=== PATIENT | male | born 1980 ===

== ENCOUNTER 2017-10-22 18:32 | Emergency (ER) | payer OTHER ==
[2017-10-22 18:32] VITALS: BMI 35.6
[2017-10-22 18:35] VITALS: BP 137/89; PULSE 74; RESP 18; TEMP 97.8; O2SAT 98
--- NOTE | 2017-10-22 19:26 | ED PDOC ---
Upper Extremity Pain/Injury Time Seen by Provider: 10/22/17 18:36 Chief Complaint (Nursing): Upper Extremity Problem/Injury Chief Complaint (Provider): Upper Extremity Problem/Injury History Per: Patient History/Exam Limitations: no limitations Onset/Duration Of Symptoms: Hrs (x 3) Current Symptoms Are (Timing): Still Present Additional Complaint(s): Lee is a 37 year old male who presents to the Emergency Department for left, middle finger pain. Patient states at 17:00 today [facility] Patient states he had a DIP fusion surgery done on his left middle finger. Reports he had multiple surgeries done due to fractures. States around 17:30, he took Oxycodone (prescribed) with no relief; prompting ED visit. Denies numbness, tingling, and fever. Orthopedic Surgeon: Dr. Patrick Davis Past Medical History Reviewed: Historical Data, Nursing Documentation, Vital Signs Vital Signs: Last Vital Signs Temp 97.8 F 10/22/17 18:33 Pulse 74 10/22/17 18:33 Resp 18 10/22/17 18:33 BP 137/89 10/22/17 18:33 Pulse Ox 98 10/22/17 18:33 - Surgical History Other surgeries: DIP Fusion Surgery- Left middle finger - Family History Family History: States: Unknown Family Hx - Immunization History Hx Tetanus Toxoid Vaccination: No Hx Influenza Vaccination: No Hx Pneumococcal Vaccination: No - Home Medications Home Medications: Ambulatory Orders Medication Instructions Recorded Ibuprofen [Motrin] 600 mg PO Q6 PRN #20 tab 05/06/15 Oxycodone HCl/Acetaminophen 1 tab PO Q6 #15 tab 05/06/15 [Percocet 325 mg-5 mg] Ondansetron ODT [Zofran ODT] 4 mg PO TID #20 odt 10/22/17 - Allergies Allergies/Adverse Reactions: Allergies Allergy/AdvReac Type Severity Reaction Status Date / Time No Known Allergies Allergy Verified 05/24/14 01:34 Review of Systems ROS Statement: Except As Marked, All Systems Reviewed And Found Negative Constitutional: Negative for: Fever Musculoskeletal: Positive for: Other (Left Middle Finger Pain) Neurological: Negative for: Numbness, Other (Tingling) Physical Exam - Reviewed Nursing Documentation Reviewed: Yes Vital Signs Reviewed: Yes - Physical Exam Appears: Positive for: Non-toxic Head Exam: Positive for: ATRAUMATIC, NORMAL INSPECTION, NORMOCEPHALIC Extremity: Positive for: Other (Left arm Ortho-Glass splint: clean, no discharge , and no bleeding.) Neurologic/Psych: Positive for: Alert, Oriented - ECG O2 Sat by Pulse Oximetry: 98 (RA) Pulse Ox Interpretation: Normal Medical Decision Making Medical Decision Making: Time: 18:49 Plan: - Morphine 4 mg IM STAT - Zofran Inj 4 mg IM STAT Time: 19:00 - Case discussed with Dr. Patrick Davis ([phone]) and advised not to remove splint since drain is in place. Special dress must be kept intact. States patient has an appointment next Sunday and can follow up then. Scribe Attestation: Documented by Az Deluca, acting as a scribe for Denys Valdez PA-C Provider Scribe Attestation: All medical record entries made by the Scribe were at my direction and personally dictated by me. I have reviewed the chart and agree that the record accurately reflects my personal performance of the history, physical exam, medical decision making, and the department course for this patient. I have also personally directed, reviewed, and agree with the discharge instructions and disposition. Disposition - Clinical Impression Clinical Impression: Finger pain - Patient ED Disposition Is Patient to be Admitted: No - Disposition Disposition: Routine/Home Disposition Time: 20:44 Condition: STABLE Additional Instructions: Follow up with Dr. Davis without fail. Prescriptions: Ondansetron ODT [Zofran ODT] 4 mg PO TID #20 odt Instructions: Splint Care (ED) Forms: [employer] (Indonesian) Print Language: NORTH KOREAN
== END 2017-10-22 21:00 | disposition home or self-care (01) ==
LOC: H.ER 18:32
DX: G89.18 Other acute postprocedural pain (principal)
CPT/HCPCS: 96372; 99282; J2270; J2405

== ENCOUNTER 2018-02-01 18:37 | Emergency (ER) | payer OTHER ==
[2018-02-01 18:37] VITALS: BMI 35.6
[2018-02-01 19:33] VITALS: BP 117/74; PULSE 109; RESP 16; TEMP 99.8; O2SAT 98
--- NOTE | 2018-02-01 20:58 | ED PDOC ---
HPI: CCC, URI, Sore Throat Time Seen by Provider: 02/01/18 19:36 Chief Complaint (Nursing): ENT Problem Chief Complaint (Provider): ENT Problem History Per: Patient History/Exam Limitations: no limitations Onset/Duration Of Symptoms: Days (x 3) Current Symptoms Are (Timing): Still Present Additional Complaint(s): 37 year old female presents to the ED complaining of fever and sore throat, onset 3 days ago. Otherwise: (-) cough, (-) rash. PMD: none provided Past Medical History Reviewed: Historical Data, Nursing Documentation, Vital Signs Vital Signs: Last Vital Signs Temp 99.8 F H 02/01/18 19:28 Pulse 109 H 02/01/18 19:28 Resp 16 02/01/18 19:28 BP 117/74 02/01/18 19:28 Pulse Ox 98 02/01/18 21:06 - Medical History PMH: No Chronic Diseases - Surgical History Other surgeries: left wrist surgery - Family History Family History: States: Unknown Family Hx - Social History Current smoker - smoking cessation education provided: Yes (Current Some Days Smoker) - Immunization History Hx Tetanus Toxoid Vaccination: No Hx Influenza Vaccination: No Hx Pneumococcal Vaccination: No - Home Medications Home Medications: Ambulatory Orders Medication Instructions Recorded Ibuprofen [Motrin] 600 mg PO Q6 PRN #20 tab 05/06/15 Oxycodone HCl/Acetaminophen 1 tab PO Q6 #15 tab 05/06/15 [Percocet 325 mg-5 mg] Ondansetron ODT [Zofran ODT] 4 mg PO TID #20 odt 10/22/17 Ibuprofen [Motrin Tab] 600 mg PO QID PRN #20 tab 02/01/18 Penicillin VK [Penicillin VK Tab] 250 mg PO Q6H #40 tab 02/01/18 - Allergies Allergies/Adverse Reactions: Allergies Allergy/AdvReac Type Severity Reaction Status Date / Time No Known Allergies Allergy Verified 05/24/14 01:34 Review of Systems ROS Statement: Except As Marked, All Systems Reviewed And Found Negative Constitutional: Positive for: Fever ENT: Positive for: Throat Pain Respiratory: Negative for: Cough Skin: Negative for: Rash Physical Exam - Reviewed Nursing Documentation Reviewed: Yes Vital Signs Reviewed: Yes - Physical Exam Comments: GENERAL APPEARANCE: Patient is awake, alert, oriented x 3, in no acute distress , speaking in full sentences. SKIN: Warm, dry; (-) cyanosis, (-) rash. (-) Decubitus Ulcer EYES: (-) conjunctival pallor, (-) scleral icterus, (-) conjunctival hemorrhage. ENMT: Mucous membranes moist. TMs: (-) erythema. Tonsils: (+) erythema, (+) exudate. NECK: (-) tenderness, (-) stiffness, (-) meningismus, (-) lymphadenopathy. CHEST AND RESPIRATORY: (-) accessory muscle use. Lungs: (-) rales, (-) rhonchi, (-) wheezes, (-) rub; breath sounds equal bilaterally. HEART AND CARDIOVASCULAR: (-) irregularity; (-) murmur, (-) gallop, (-) rub. ABDOMEN AND GI: Soft; (-) tenderness, (-) guarding; (-) organomegaly; (-) mass ; (-) CVA tenderness. EXTREMITIES: (-) deformity; (-) cellulitis, (-) lymphangitis; (-) subungual hemorrhage; (-) edema. NEURO AND PSYCH: Mental status as above; (-) focal findings. - ECG O2 Sat by Pulse Oximetry: 98 (RA) Pulse Ox Interpretation: Normal Medical Decision Making Medical Decision Making: Time: 20:04 Impression: pharyngitis Patient will be discharged with Motrin due to fever. Advised to follow up with primary care physician or the clinic in 1-2 days without fail. Advised to take medication as prescribed. Return to the emergency room at any time for any new or worsening symptoms. Patient states he fully agrees with and understands discharge instructions. States that he agrees with the plan and disposition. Verbalized and repeated discharge instructions and plan. I have given the patient opportunity to ask any additional questions. ---- Scribe Attestation: Documented by Carmita Velázquez, acting as a scribe for Starla Pozo PA-C Provider Scribe Attestation: All medical record entries made by the Scribe were at my direction and personally dictated by me. I have reviewed the chart and agree that the record accurately reflects my personal performance of the history, physical exam, medical decision making, and the department course for this patient. I have also personally directed, reviewed, and agree with the discharge instructions and disposition. Disposition - Clinical Impression Clinical Impression: Pharyngitis - Patient ED Disposition Is Patient to be Admitted: No Counseled Patient/Family Regarding: Diagnosis, Need For Followup, Rx Given - Disposition Referrals: [facility] [Outside] Disposition: Routine/Home Disposition Time: 20:00 Condition: STABLE Additional Instructions: Thank you for letting us take care of you today. You were treated for pharyngitis. The emergency medical care you received today was directed at your acute symptoms. If you were prescribed any medication, please fill it and take as directed. It may take several days for your symptoms to resolve. Return to the Emergency Department if your symptoms worsen, do not improve, or if you have any other problems. Please contact your doctor in 2 days for re-evaluation and follow up / or call one of the physicians/clinics you have been referred to that are listed on the Patient Visit Information form that is included in your discharge packet. Bring any paperwork you were given at discharge with you along with any medications you are taking to your follow up visit. Our treatment cannot replace ongoing medical care by a primary care provider (PCP) outside of the emergency department. Thank you for allowing the [facility] team to be part of your care today. Prescriptions: Ibuprofen [Motrin Tab] 600 mg PO QID PRN #20 tab PRN Reason: Fever >100.4 F Penicillin VK [Penicillin VK Tab] 250 mg PO Q6H #40 tab Instructions: Pharyngitis (ED) Forms: [employer] ([place]an), [facility] ED School/Work Excuse Print Language: CHINESE - PA / SUPERVISOR EDGING / Resident Statement MD/DO has reviewed & agrees with the documentation as recorded.
== END 2018-02-01 20:55 | disposition home or self-care (01) ==
LOC: H.ER 18:37
DX: R50.9 Fever, unspecified (principal); J02.9 Acute pharyngitis, unspecified; F17.200 Nicotine dependence, unspecified, uncomplicated